=== PATIENT | female | born 1980 | race Caucasian/White ===

== ENCOUNTER 2020-07-22 08:03 | Outpatient (CLI) | payer BC, SELFPAY | END 2020-07-22 08:04 | disposition home or self-care (01) | LOC: ANHCOVIDVC 08:03 | PROVIDERS: PCP Nurse Practitioner Family | DX: Z23 Encounter for immunization (principal) | CPT/HCPCS: 0001A; 91300 ==

== ENCOUNTER 2020-08-12 08:04 | Outpatient (CLI) | payer BC, SELFPAY | END 2020-08-12 08:05 | disposition home or self-care (01) | LOC: ANHCOVIDVC 08:04 | PROVIDERS: PCP Nurse Practitioner Family | DX: Z23 Encounter for immunization (principal) | CPT/HCPCS: 0002A; 91300 ==